=== PATIENT | female | born 1970 | race African-American/Black ===

== ENCOUNTER 2019-02-01 17:07 | Inpatient (IN) | payer MEDICAID ==
[~2019-02-01] VITALS: Ht 170.2 cm; Wt 77.7 kg
[2019-02-01] MEDS ORDERED: NKM (17:17)
--- NOTE | 2019-02-01 17:22 | NUR ---
ED Nurse Note: Pt came into the ER w/ complaints of posterior neck pain that radiated to the chest this morning. Pt is rating the pain a 10/10. According to pt, about 5 years ago she was diagnosed with HTN and prescribed atenalol. Pt stopped drinking meds because she states that "it was not right for me." Pt denies having n,v, headache. Pt is A + o x4. Ambulatory. Skin warm to touch.
[2019-02-01 17:24] VITALS: BP 188/107
[2019-02-01] MEDS ORDERED: Methocarbamol 750mg tab ORAL ONE (17:45)
--- NOTE | 2019-02-01 17:58 | NUR ---
ED Nurse Note: Xray at the bedside.
[2019-02-01 18:13] LABS: HEMATOCRIT 24.6 % (37.0-47.0); HEMOGLOBIN 7.2 G/DL (12.0-16.0); MEAN CORPUSCULAR VOLUME 63 FL (80-99); PLATELET COUNT 318 K/UL (150-450); RED CELL DISTRIBUTION WIDTH 13.7 % (11.6-14.8); WHITE BLOOD COUNT 7.4 K/UL (4.8-10.8)
--- NOTE | 2019-02-01 18:30 | Diagnostic Imaging Report ---
Indication: Dyspnea Comparison: None A single view chest radiograph was obtained. Findings: Cardiac silhouette is prominent. The lungs are clear. Pulmonary vascularity is appropriate. The diaphragmatic contour is smooth and costophrenic angles are sharp. No pleural effusions are identified. The bones are unremarkable. Impression: No acute findings
[2019-02-01 18:39] LABS: ANION GAP 7 mmol/L (5-15); BLOOD UREA NITROGEN 9 mg/dL (7-18); CALCIUM 8.8 MG/DL (8.5-10.1); CARBON DIOXIDE 29 MMOL/L (21-32); CHLORIDE 103 MMOL/L (98-107); POTASSIUM 4.2 MMOL/L (3.5-5.1); SODIUM 139 MMOL/L (136-145)
[2019-02-01 18:56] LABS: ALANINE AMINOTRANSFERASE 14 U/L (12-78); ALBUMIN 3.7 G/DL (3.4-5.0); ALBUMIN/GLOBULIN RATIO 1.1 (1.0-2.7); ALKALINE PHOSPHATASE 51 U/L (46-116); ASPARTATE AMINO TRANSFERASE 11 U/L (15-37); BILIRUBIN,TOTAL 0.3 MG/DL (0.2-1.0); CKMB 1.1 NG/ML (0.0-3.6); CREATINE KINASE 162 U/L (26-308)
--- NOTE | 2019-02-01 19:04 | NUR ---
HAND-OFF: Report given to AUNDREA Marquez.
[2019-02-01 21:50] VITALS: BP 180/100
--- NOTE | 2019-02-01 21:50 | NUR ---
ED Nurse Note: Blood transfusuon started at 2150. Patient's VSS at this time, no s/s of blood transfusion reaction noticed.
--- NOTE | 2019-02-01 21:55 | Emergency Room Report ---
History of Present Illness General Chief Complaint: Chest Pain Source: Patient Present Illness HPI 48-year-old female presents ED for evaluation. Complaining of pain in her upper back starting 2 days ago, radiating across the chest. Denies shortness of breath. Notes history of hypertension. BP high at triage. States that she does not take BP meds at this time. Denies any headache or photophobia. Denies any nausea or vomiting. Denies alcohol or drug use. No other aggravating relieving factors. Denies any other associated symptoms Allergies: Coded Allergies: No Known Allergies (Unverified , 02/01/19) Patient History Past Medical History: HTN, other - aneia Past Surgical History: none Pertinent Family History: none Social History: Denies: smoking, alcohol use, drug use Last Menstrual Period: 12/30/18 Now: No Immunizations: UTD Reviewed Nursing Documentation: PMH: Agreed; PSxH: Agreed Nursing Documentation-PMH Past Medical History: No History, Except For Hx Hypertension: Yes Review of Systems All Other Systems: negative except mentioned in HPI Physical Exam Vital Signs Date Time Temp Pulse Resp B/P (MAP) Pulse Ox O2 Delivery O2 Flow Rate FiO2 02/01/19 17:13 99.0 75 16 97 Room Air 02/01/19 17:24 100 02/01/19 17:24 188/107 Sp02 EP Interpretation: reviewed, normal General Appearance: no apparent distress, alert, GCS 15, non-toxic Head: normocephalic, atraumatic Eyes: bilateral eye normal inspection, bilateral eye PERRL ENT: hearing grossly normal, normal pharynx, no angioedema, normal voice Neck: full range of motion, supple, no meningismus, supple/symm/no masses Respiratory: chest non-tender, lungs clear, normal breath sounds, speaking full sentences Cardiovascular #1: regular rate, rhythm, no edema Cardiovascular #2: 2+ carotid (R), 2+ carotid (L), 2+ radial (R), 2+ radial (L) , 2+ dorsalis pedis (R), 2+ dorsalis pedis (L) Gastrointestinal: normal bowel sounds, non tender, soft, non-distended, no guarding, no rebound Rectal: deferred Genitourinary: normal inspection, no CVA tenderness Musculoskeletal: back normal, gait/station normal, normal range of motion, non- tender Neurologic: alert, oriented x3, responsive, motor strength/tone normal, sensory intact, speech normal Psychiatric: judgement/insight normal, memory normal, mood/affect normal, no suicidal/homicidal ideation Reflexes: 3+ bicep (R), 3+ bicep (L), 3+ tricep (R), 3+ tricep (L), 3+ knee (R) , 3+ knee (L) Skin: normal color, no rash, warm/dry, well hydrated Lymphatic: no adenopathy Medical Decision Making Diagnostic Impression: Primary Impression: ACS (acute coronary syndrome) Additional Impressions: Anemia Qualified Codes: D64.9 - Anemia, unspecified Hypertension Qualified Codes: I10 - Essential (primary) hypertension ER Course Hospital Course 48-year-old female presents ED complaining of left-sided chest pain Differential diagnoses include: SC/unstable angina, contusion, muscle strain, PTX, rib fracture Clinical course Patient placed on stretcher. on quality assurance monitor chassis. After initial history and physical I ordered labs, EKG, chest x-ray, tylenol, robaxin labs reviewed- no leukocytosis, Hb 7.2, Hct 24.6, electrolytes ok, trop 0.047 EKG - NSR, no acute ischemic changes interpreted by me Chest x-ray- no acute process Clinical exam the pain appears to be muscular however given patient's elevated blood pressure and indeterminate troponin I believe patient should be admitted. Given hydralazine for elevated BP. PRBCs ordered. Case discussed with Dr. Robertson and he agreed to accept the patient to his service for further care and support I. I feel this is a highly complex case requiring extensive working including EKG/Rhythm strip, Xray/CT/US, Blood/urine lab work, repeat exams while in ED, and administration of strong opiates/narcotics for pain control, admission to hospital or close patient follow up. Diagnosis - ACS, anemia, hypertension admitted to telemetry in serious condition Labs Test 02/01/19 17:55 White Blood Count 7.4 K/UL (4.8-10.8) Red Blood Count 3.90 M/UL (4.20-5.40) Hemoglobin 7.2 G/DL (12.0-16.0) Hematocrit 24.6 % (37.0-47.0) Mean Corpuscular Volume 63 FL (80-99) Mean Corpuscular Hemoglobin 18.5 PG (27.0-31.0) Mean Corpuscular Hemoglobin Concent 29.2 G/DL (32.0-36.0) Red Cell Distribution Width 13.7 % (11.6-14.8) Platelet Count 318 K/UL (150-450) Mean Platelet Volume 5.7 FL (6.5-10.1) Neutrophils (%) (Auto) % (45.0-75.0) Lymphocytes (%) (Auto) % (20.0-45.0) Monocytes (%) (Auto) % (1.0-10.0) Eosinophils (%) (Auto) % (0.0-3.0) Basophils (%) (Auto) % (0.0-2.0) Differential Total Cells Counted 100 Neutrophils % (Manual) 57 % (45-75) Lymphocytes % (Manual) 35 % (20-45) Monocytes % (Manual) 5 % (1-10) Eosinophils % (Manual) 2 % (0-3) Basophils % (Manual) 1 % (0-2) Band Neutrophils 0 % (0-8) Platelet Estimate Adequate Platelet Morphology Normal Hypochromasia 2+ Anisocytosis 2+ Prothrombin Time 10.6 SEC (9.30-11.50) Prothromb Time International Ratio 1.0 (0.9-1.1) Activated Partial Thromboplast Time 26 SEC (23-33) Sodium Level 139 MMOL/L (136-145) Potassium Level 4.2 MMOL/L (3.5-5.1) Chloride Level 103 MMOL/L (98-107) Carbon Dioxide Level 29 MMOL/L (21-32) Anion Gap 7 mmol/L (5-15) Blood Urea Nitrogen 9 mg/dL (7-18) Creatinine 1.0 MG/DL (0.55-1.30) Estimat Glomerular Filtration Rate 58.9 mL/min (>60) Glucose Level 87 MG/DL (74-106) Calcium Level 8.8 MG/DL (8.5-10.1) Total Bilirubin 0.3 MG/DL (0.2-1.0) Aspartate Amino Transf (AST/SGOT) 11 U/L (15-37) Alanine Aminotransferase (ALT/SGPT) 14 U/L (12-78) Alkaline Phosphatase 51 U/L (46-116) Total Creatine Kinase 162 U/L (26-308) Creatine Kinase MB 1.1 NG/ML (0.0-3.6) Creatine Kinase MB Relative Index 0.6 Troponin I 0.047 ng/mL (0.000-0.056) Pro-B-Type Natriuretic Peptide 84 pg/mL (0-125) Total Protein 7.1 G/DL (6.4-8.2) Albumin 3.7 G/DL (3.4-5.0) Globulin 3.4 g/dL Albumin/Globulin Ratio 1.1 (1.0-2.7) EKG Diagnostic Results Rate: normal Rhythm: NSR ST Segments: no acute changes ASA given to the pt in ED: No Rhythm Strip Diag. Results EP Interpretation: yes Rhythm: NSR, no PVC's, no ectopy Chest X-Ray Diagnostic Results Chest X-Ray Diagnostic Results : Chest X-Ray Ordered: Yes # of Views/Limited/Complete: 1 View Indication: Chest Pain EP Interpretation: Yes Interpretation: no consolidation, no effusion, no pneumothorax, no acute cardiopulmonary disease Impression: No acute disease Electronically Signed by: Electronically signed by Ramiro Morel MD Last Vital Signs Date Time Temp Pulse Resp B/P (MAP) Pulse Ox O2 Delivery O2 Flow Rate FiO2 02/01/19 20:30 178/98 02/01/19 18:27 98.7 02/01/19 17:24 83 16 100 Room Air 02/01/19 17:24 100 Status: improved Disposition: ADMITTED INPATIENT Condition: Serious Referrals: NOT CHOSEN IPA/,REFERRING (PCP) Ramiro Morel MD February 01, 2019 21:55
[2019-02-01 22:05] VITALS: BP 185/101
--- NOTE | 2019-02-01 22:05 | NUR ---
ED Nurse Note: 15 min pass from the start of blood transfusion, VSS aty this time no acute disstress notised.
[2019-02-01 22:30] VITALS: BP 137/95
[2019-02-01] MEDS ORDERED: Morphine Sulfate 2mg/ml Inj(IV/IM USE ONLY) IVP PRN (22:30)
[2019-02-01] MEDS ORDERED: Nitroglycerin Subl 0.4mg tab SL PRN (22:30)
[2019-02-01] MEDS: Carvedilol 6.25mg Tab ORAL SCH (22:30)
[2019-02-01 23:00] VITALS: BP 144/85
--- NOTE | 2019-02-01 23:00 | NUR ---
ED Nurse Note: Patient was admited to Tele, due to anemia. Patient started her first unit of the blood at ER, AAO x4, VSS at this time. Patient was transfered by ACLS protocol, all belongings were given to the patient.
[2019-02-02] MEDS: Enoxaparin 40mg Inj SUBQ SCH ×2 (00:29→22:31)
[2019-02-02 04:00] VITALS: BP 148/96
[2019-02-02 06:46] LABS: EOSINOPHILS % (AUTO) 0.9 % (0.0-3.0); HEMATOCRIT 31.4 % (37.0-47.0); HEMOGLOBIN 9.8 G/DL (12.0-16.0); LYMPHOCYTES % (AUTO) 27.7 % (20.0-45.0); MEAN CORPUSCULAR VOLUME 67 FL (80-99); MONOCYTES % (AUTO) 7.4 % (1.0-10.0); PLATELET COUNT 302 K/UL (150-450); RED BLOOD COUNT 4.67 M/UL (4.20-5.40); RED CELL DISTRIBUTION WIDTH 18.7 % (11.6-14.8); WHITE BLOOD COUNT 6.3 K/UL (4.8-10.8)
[2019-02-02 06:49] LABS: ANION GAP 9 mmol/L (5-15); BLOOD UREA NITROGEN 8 mg/dL (7-18); CARBON DIOXIDE 27 MMOL/L (21-32); CHLORIDE 105 MMOL/L (98-107); CREATININE 1.1 MG/DL (0.55-1.30); POTASSIUM 4.5 MMOL/L (3.5-5.1); SODIUM 140 MMOL/L (136-145)
--- NOTE | 2019-02-02 07:37 | NUR ---
HAND-OFF: Report given to AUNDREA Steiner.
--- NOTE | 2019-02-02 07:37 | NUR ---
NURSE NOTES: Troponin 0.075. Robertson aware. Case Assembler consulted per .
--- NOTE | 2019-02-02 07:54 | Cardiology Progress Note ---
Assessment/Plan Assessment/Plan The patient is seen and examined, full consult note will be dictated. Objective Last 24 Hour Vital Signs Date Time Temp Pulse Resp B/P (MAP) Pulse Ox O2 Delivery O2 Flow Rate FiO2 02/02/19 04:00 84 02/02/19 04:00 97.2 88 20 148/96 (113) 97 02/02/19 00:00 92 02/01/19 23:59 98.0 92 22 144/85 100 Room Air 02/01/19 23:00 98.0 85 18 144/85 100 Room Air 02/01/19 22:30 97.7 85 18 137/95 (109) 97 02/01/19 22:30 85 137/95 02/01/19 22:30 Room Air 02/01/19 22:24 182/100 02/01/19 22:23 182/100 02/01/19 22:05 98.0 79 20 185/101 100 Room Air 02/01/19 21:50 98.5 85 22 180/100 100 Room Air 02/01/19 20:30 178/98 02/01/19 18:27 98.7 02/01/19 17:24 98.7 83 16 188/107 100 Room Air 02/01/19 17:24 83 16 Room Air 100 02/01/19 17:13 99.0 75 16 97 Room Air Laboratory Tests Test 02/01/19 17:55 02/02/19 06:23 White Blood Count 7.4 K/UL (4.8-10.8) 6.3 K/UL (4.8-10.8) Red Blood Count 3.90 M/UL (4.20-5.40) L 4.67 M/UL (4.20-5.40) Hemoglobin 7.2 G/DL (12.0-16.0) L 9.8 G/DL (12.0-16.0) #L Hematocrit 24.6 % (37.0-47.0) L 31.4 % (37.0-47.0) L Mean Corpuscular Volume 63 FL (80-99) L 67 FL (80-99) L Mean Corpuscular Hemoglobin 18.5 PG (27.0-31.0) L 21.1 PG (27.0-31.0) L Mean Corpuscular Hemoglobin Concent 29.2 G/DL (32.0-36.0) L 31.4 G/DL (32.0-36.0) L Red Cell Distribution Width 13.7 % (11.6-14.8) 18.7 % (11.6-14.8) H Platelet Count 318 K/UL (150-450) 302 K/UL (150-450) Mean Platelet Volume 5.7 FL (6.5-10.1) L 6.3 FL (6.5-10.1) L Neutrophils (%) (Auto) % (45.0-75.0) 63.0 % (45.0-75.0) Lymphocytes (%) (Auto) % (20.0-45.0) 27.7 % (20.0-45.0) Monocytes (%) (Auto) % (1.0-10.0) 7.4 % (1.0-10.0) Eosinophils (%) (Auto) % (0.0-3.0) 0.9 % (0.0-3.0) Basophils (%) (Auto) % (0.0-2.0) 1.0 % (0.0-2.0) Differential Total Cells Counted 100 Neutrophils % (Manual) 57 % (45-75) Lymphocytes % (Manual) 35 % (20-45) Monocytes % (Manual) 5 % (1-10) Eosinophils % (Manual) 2 % (0-3) Basophils % (Manual) 1 % (0-2) Band Neutrophils 0 % (0-8) Platelet Estimate Adequate Platelet Morphology Normal Hypochromasia 2+ Anisocytosis 2+ Prothrombin Time 10.6 SEC (9.30-11.50) Prothromb Time International Ratio 1.0 (0.9-1.1) Activated Partial Thromboplast Time 26 SEC (23-33) Sodium Level 139 MMOL/L (136-145) 140 MMOL/L (136-145) Potassium Level 4.2 MMOL/L (3.5-5.1) 4.5 MMOL/L (3.5-5.1) Chloride Level 103 MMOL/L (98-107) 105 MMOL/L (98-107) Carbon Dioxide Level 29 MMOL/L (21-32) 27 MMOL/L (21-32) Anion Gap 7 mmol/L (5-15) 9 mmol/L (5-15) Blood Urea Nitrogen 9 mg/dL (7-18) 8 mg/dL (7-18) Creatinine 1.0 MG/DL (0.55-1.30) 1.1 MG/DL (0.55-1.30) Estimat Glomerular Filtration Rate 58.9 mL/min (>60) > 60 mL/min (>60) Glucose Level 87 MG/DL (74-106) 92 MG/DL (74-106) Calcium Level 8.8 MG/DL (8.5-10.1) 9.0 MG/DL (8.5-10.1) Total Bilirubin 0.3 MG/DL (0.2-1.0) Aspartate Amino Transf (AST/SGOT) 11 U/L (15-37) L Alanine Aminotransferase (ALT/SGPT) 14 U/L (12-78) Alkaline Phosphatase 51 U/L (46-116) Total Creatine Kinase 162 U/L (26-308) Creatine Kinase MB 1.1 NG/ML (0.0-3.6) Creatine Kinase MB Relative Index 0.6 Troponin I 0.047 ng/mL (0.000-0.056) 0.075 ng/mL (0.000-0.056) Pro-B-Type Natriuretic Peptide 84 pg/mL (0-125) Total Protein 7.1 G/DL (6.4-8.2) Albumin 3.7 G/DL (3.4-5.0) Globulin 3.4 g/dL Albumin/Globulin Ratio 1.1 (1.0-2.7) Rigoberto Blackmon MD February 02, 2019 07:54
[2019-02-02 08:00] VITALS: BP 146/95
--- NOTE | 2019-02-02 08:06 | NUR ---
Received report from Mary Jo GUILLAUME. Pt in bed just had breakfast. Pt on court recording monitor no signs of distress. Bed in locked and in lowest position. Call light within reach. Will continue to monitor labs. Addendum: 02/02/19 at 0813 by Obdulia Reagan RN Received report from Mary Jo GUILLAUME. Pt in bed just had breakfast. Pt on court recording monitor no signs of distress. Bed in locked and in lowest position. Call light within reach. Will continue to monitor labs. Night nurse notified Dr. Pringle about high troponin of 0.075 early this morning.
[2019-02-02 08:31] LABS: CHOLESTEROL 120 MG/DL (< 200); HDL CHOLESTEROL 53 MG/DL (40-60); TRIGLYCERIDES 51 MG/DL (30-150)
[2019-02-02] MEDS: Aspirin Baby 81mg ORAL SCH (09:17)
[2019-02-02] MEDS: Carvedilol 6.25mg Tab ORAL SCH ×2 (09:18→20:45)
[2019-02-02 12:00] VITALS: BP 155/97
[2019-02-02] MEDS: Excedrin Migraine tab ORAL PRN ×2 (12:08→13:22)
--- NOTE | 2019-02-02 12:17 | GI Initial Consult Note ---
History of Present Illness General Date patient seen: February 02, 2019 Time patient seen: 12:12 Reason for Hospitalization: Chest Pain Referring physician: FRITZ MCCLURE Reason for Consultation: Anemia Present Illness HPI 48-year-old female presents ED for evaluation. Complaining of pain in her upper back starting 2 days ago, radiating across the chest. Denies shortness of breath. Notes history of hypertension. BP high at triage. States that she does not take BP meds at this time. Denies any headache or photophobia. Denies any nausea or vomiting. Denies alcohol or drug use. No other aggravating relieving factors. Denies any other associated symptoms GI consulted for reported anemia. The patient was seen, awake alert oriented x4 no apparent distress. Patient denied any abdominal pain, denies any nausea vomiting or diarrhea at this time. Patient denied any signs or symptoms of hematochezia or melena. The patient has complaint of chest pain with radiation to the back. In addition, patient complains of belching and acid reflux. Patient presents today with a hemoglobin 7.8, no transaminitis noted, no leukocytosis. Patient denies any history of endoscopic or colonoscopy. Patient is currently being transfused 2 units of blood. Home Meds Reported Medications No Known Medications* (NKM - No Known Medications*) ., 0 ., 0 Refills 02/01/19 Med list reviewed/reconciled: Yes Allergies: Coded Allergies: No Known Allergies (Unverified , 02/01/19) Patient History History Provided By: Patient, Medical Record PMH Narrative Past Medical History: HTN, other -anemia Past Surgical History: none Pertinent Family History: none Social History: Denies: smoking, alcohol use, drug use Last Menstrual Period: 12/30/18 Now: No Immunizations: UTD Reviewed Nursing Documentation: PMH: Agreed; PSxH: Agreed Nursing Documentation-PMH Past Medical History: No History, Except For Hx Hypertension: Yes Social History: Denies: smoking, alcohol use, drug use, other Review of Systems All Other Systems: negative except mentioned in HPI Physical Exam Vital Signs Date Time Temp Pulse Resp B/P (MAP) Pulse Ox O2 Delivery O2 Flow Rate FiO2 02/01/19 17:13 99.0 75 16 97 Room Air 02/01/19 17:24 100 02/01/19 17:24 188/107 Sp02 EP Interpretation: reviewed, normal Labs Laboratory Tests Test 02/01/19 17:55 02/02/19 06:23 White Blood Count 7.4 K/UL (4.8-10.8) 6.3 K/UL (4.8-10.8) Red Blood Count 3.90 M/UL (4.20-5.40) L 4.67 M/UL (4.20-5.40) Hemoglobin 7.2 G/DL (12.0-16.0) L 9.8 G/DL (12.0-16.0) #L Hematocrit 24.6 % (37.0-47.0) L 31.4 % (37.0-47.0) L Mean Corpuscular Volume 63 FL (80-99) L 67 FL (80-99) L Mean Corpuscular Hemoglobin 18.5 PG (27.0-31.0) L 21.1 PG (27.0-31.0) L Mean Corpuscular Hemoglobin Concent 29.2 G/DL (32.0-36.0) L 31.4 G/DL (32.0-36.0) L Red Cell Distribution Width 13.7 % (11.6-14.8) 18.7 % (11.6-14.8) H Platelet Count 318 K/UL (150-450) 302 K/UL (150-450) Mean Platelet Volume 5.7 FL (6.5-10.1) L 6.3 FL (6.5-10.1) L Neutrophils (%) (Auto) % (45.0-75.0) 63.0 % (45.0-75.0) Lymphocytes (%) (Auto) % (20.0-45.0) 27.7 % (20.0-45.0) Monocytes (%) (Auto) % (1.0-10.0) 7.4 % (1.0-10.0) Eosinophils (%) (Auto) % (0.0-3.0) 0.9 % (0.0-3.0) Basophils (%) (Auto) % (0.0-2.0) 1.0 % (0.0-2.0) Differential Total Cells Counted 100 Neutrophils % (Manual) 57 % (45-75) Lymphocytes % (Manual) 35 % (20-45) Monocytes % (Manual) 5 % (1-10) Eosinophils % (Manual) 2 % (0-3) Basophils % (Manual) 1 % (0-2) Band Neutrophils 0 % (0-8) Platelet Estimate Adequate Platelet Morphology Normal Hypochromasia 2+ Anisocytosis 2+ Prothrombin Time 10.6 SEC (9.30-11.50) Prothromb Time International Ratio 1.0 (0.9-1.1) Activated Partial Thromboplast Time 26 SEC (23-33) Sodium Level 139 MMOL/L (136-145) 140 MMOL/L (136-145) Potassium Level 4.2 MMOL/L (3.5-5.1) 4.5 MMOL/L (3.5-5.1) Chloride Level 103 MMOL/L (98-107) 105 MMOL/L (98-107) Carbon Dioxide Level 29 MMOL/L (21-32) 27 MMOL/L (21-32) Anion Gap 7 mmol/L (5-15) 9 mmol/L (5-15) Blood Urea Nitrogen 9 mg/dL (7-18) 8 mg/dL (7-18) Creatinine 1.0 MG/DL (0.55-1.30) 1.1 MG/DL (0.55-1.30) Estimat Glomerular Filtration Rate 58.9 mL/min (>60) > 60 mL/min (>60) Glucose Level 87 MG/DL (74-106) 92 MG/DL (74-106) Calcium Level 8.8 MG/DL (8.5-10.1) 9.0 MG/DL (8.5-10.1) Total Bilirubin 0.3 MG/DL (0.2-1.0) Aspartate Amino Transf (AST/SGOT) 11 U/L (15-37) L Alanine Aminotransferase (ALT/SGPT) 14 U/L (12-78) Alkaline Phosphatase 51 U/L (46-116) Total Creatine Kinase 162 U/L (26-308) Creatine Kinase MB 1.1 NG/ML (0.0-3.6) Creatine Kinase MB Relative Index 0.6 Troponin I 0.047 ng/mL (0.000-0.056) 0.075 ng/mL (0.000-0.056) Pro-B-Type Natriuretic Peptide 84 pg/mL (0-125) Total Protein 7.1 G/DL (6.4-8.2) Albumin 3.7 G/DL (3.4-5.0) Globulin 3.4 g/dL Albumin/Globulin Ratio 1.1 (1.0-2.7) Triglycerides Level 51 MG/DL (30-150) Cholesterol Level 120 MG/DL (< 200) LDL Cholesterol 60 mg/dL (<100) HDL Cholesterol 53 MG/DL (40-60) Cholesterol/HDL Ratio 2.3 (3.3-4.4) L General Appearance: well appearing, no apparent distress, alert Head: normocephalic EENT: PERRL/EOMI, normal ENT inspection Neck: supple Respiratory: normal breath sounds, no respiratory distress Cardiovascular: normal rate Gastrointestinal: normal inspection, non tender, soft, normal bowel sounds, non -distended Rectal: deferred Genitourinary: no CVA tenderness Musculoskeletal: normal inspection, back normal Neurologic: normal inspection, alert, oriented x3, responsive Psychiatric: normal inspection, judgement/insight normal, memory normal Skin: normal inspection, normal color, no rash, warm/dry, palpation normal, well hydrated Lymphatic: normal inspection, no adenopathy Current Medications Current Medications Medications (Trade) Dose Ordered Sig/Donnie Route PRN Reason Start Time Stop Time Status Last Admin Dose Admin Acetaminophen (Tylenol) 650 mg Q4H PRN ORAL Mild Pain (Pain Scale 1-3) 02/01/19 22:30 03/03/19 22:29 Acetaminophen/ Aspirin/Caffeine (Excedrin Migraine) 1 ea Q6H PRN ORAL Headache 02/02/19 12:00 03/04/19 11:59 02/02/19 12:08 Aspirin (ASA) 81 mg DAILY ORAL 02/02/19 09:00 03/04/19 08:59 02/02/19 09:17 Atorvastatin Calcium (Lipitor) 80 mg BEDTIME ORAL 02/02/19 21:00 03/04/19 20:59 Carvedilol (Coreg) 6.25 mg EVERY 12 HOURS ORAL 02/01/19 22:30 03/03/19 22:29 02/02/19 09:18 Dextrose (Dextrose 50%) 25 ml Q30M PRN IV Hypoglycemia 02/01/19 22:30 6/12/19 22:29 Dextrose (Dextrose 50%) 50 ml Q30M PRN IV Hypoglycemia 02/01/19 22:30 03/03/19 22:29 Enoxaparin Sodium (Lovenox) 40 mg Q24H SUBQ 02/01/19 23:30 03/03/19 23:29 02/02/19 00:29 Famotidine (Pepcid) 40 mg DAILY ORAL 02/02/19 09:00 03/04/19 08:59 02/02/19 09:17 Hydralazine HCl (Apresoline) 10 mg Q4H PRN IV For High Blood Pressure 02/01/19 22:30 03/03/19 22:29 Morphine Sulfate (Morphine Sulfate) 1 mg Q8H PRN IVP For Pain 02/01/19 22:30 02/08/19 22:29 Nitroglycerin (Ntg) 0.4 mg Q5M PRN SL Prn Chest Pain 02/01/19 22:30 03/03/19 22:29 Ondansetron HCl (Zofran) 4 mg Q6H PRN IVP Nausea & Vomiting 02/01/19 22:30 03/03/19 22:29 Regadenoson (Lexiscan) 0.4 mg ONCE PRN IV stress test 02/03/19 12:00 02/04/19 11:59 GI: Plan Problems: (1) Anemia (2) GERD (gastroesophageal reflux disease) Plan Will consider GI procedures pending work-up Follow cardiology recommendations given elevated troponin levels anemia work up OB stool r/o GI bleed monitor H&H, prn transfusions bowel regime H2B fu labs, urine tox Discussed with Dr. Sharma. Thank you for this patient referral, we will follow. The patient was seen and examined at bedside and all new and available data was reviewed in the patients chart. I agree with the above findings, impression and plan. (Patient seen earlier today. Signature stamp does not reflect patient encounter time.). - MD More Wang,[facility] [employer] ENGINEER February 02, 2019 12:17
--- NOTE | 2019-02-02 12:56 | Cardiology Report ---
APPROVED REPORT EXAM: Two-dimensional and M-mode echocardiogram with Doppler and color Doppler. INDICATION S.O.B M-Mode DIMENSIONS IVSd0.9 (0.7-1.1cm)Left Atrium (MM)2.9 (1.6-4.0cm) LVDd5.2 (3.5-5.6cm)Aortic Root3.7 (2.0-3.7cm) PWd1.0 (0.7-1.1cm)Aortic Cusp Exc.2.0 (1.5-2.0cm) IVSs1.4 cm LVDs3.1 (2.5-4.0cm) PWs1.4 cm Normal left ventricular chamber size, systolic function and wall motion. Left ventricular ejection fraction estimated to be 60-65%. Mild left ventricular hypertrophy by 2-D. Anterior Echo-free space, may be due to pericardial fat or effusion. All other cardiac chamber sizes are within normal limits. Aortic valve calcification with normal cusp excursion . Mildly thickened mitral valve leaflets with normal excursion. Mild mitral annulus and aortic root calcification. Pulmonic valve not well visualized. IVC at normal size with physiologic collapse . A color flow and spectral Doppler study was performed and revealed: Mild aortic insufficiency . Mitral diastolic velocities suggest reduced left ventricular relaxation c/w mild LV diastolic dysfunction (Grade I ) Mild mitral regurgitation. Trace tricuspid regurgitation. Tricuspid systolic velocities suggests peak right ventricular systolic pressure of 21mmHg.
--- NOTE | 2019-02-02 14:21 | Cardiology Report ---
APPROVED REPORT EKG Measurement Heart [id number] Normal sinus rhythm Possible Left atrial enlargement Borderline ECG
--- NOTE | 2019-02-02 14:29 | NUR ---
CASE MANAGEMENT:REVIEW 48 YR OLD FEMALE PRESENTED TO ER CC; CHEST PAIN SI: ACS. ANEMIA. HTN 99.0 75 16 188/107 97% ON RA h/h-7.2/24.6 IS: TYLENOL PO IV HYDRALAZINE METHOCARBAMOL PO CHEST XRAY TRANSFUSE 2 UNITS PRBC'S : TO TELEMETRY INTERQUAL CRITERIA MET
--- NOTE | 2019-02-02 14:34 | NUR ---
Pt will like to have a thread mill test done instead of the of the lexiscan. Blair from lab is communicating with cardiology to verify if thread mill test is sufficient.
[2019-02-02 16:00] VITALS: BP 147/91
--- NOTE | 2019-02-02 16:15 | History and Physical Report ---
DATE OF ADMISSION: 02/01/2019 REASON FOR ADMISSION: 1. Chest pain. 2. Anemia. 3. Hypertension. HISTORY OF PRESENT ILLNESS: The patient is a 48-year-old female, admitted overnight from the emergency room after complaining of chest pain over the last two days, radiating across her chest. She denies any shortness of breath. No nausea, vomiting, or diarrhea. The patient stated that she had not been taking her medications, had been prescribed medications in the past, but she stated she did not feel well on them and had stopped taking them. Her troponins were slightly elevated at the time of admission. The patient is feeling slightly better since chest pressure has resolved. ALLERGIES: No known drug allergies. PAST MEDICAL HISTORY: Hypertension. PAST SURGICAL HISTORY: None. SOCIAL HISTORY: No tobacco, alcohol, or illicit drug use. FAMILY HISTORY: Positive for hypertension. REVIEW OF SYSTEMS: NEUROLOGIC: The patient denies headache, change in vision, syncope, or presyncopal episodes. CARDIOVASCULAR: The patient is having some chest pain. No palpitations. PULMONARY: No difficulty breathing, productive cough, or sputum. GASTROINTESTINAL/GENITOURINARY: No change in bowel habits. No nausea, vomiting, or diarrhea. ENDOCRINOLOGY: No night sweats, fevers, or chills. PHYSICAL EXAMINATION: VITAL SIGNS: Blood pressure 146/95, respiratory rate 20, pulse 84, temperature 98.8, 98% oxygen saturation on room air. GENERAL: The patient is awake, alert, not in distress. HEENT: Extraocular muscles intact. No lymphadenopathy noted. Oropharyngeal mucosa clear and dry. CARDIOVASCULAR: S1, S2. No murmurs, rubs, or gallops. PULMONARY: Clear to auscultation bilaterally. No rales, rhonchi, or wheezes. ABDOMEN: Nondistended and nontender. EXTREMITIES: No edema noted. ASSESSMENT AND PLAN: 1. Hypertension. At this time, Coreg has been initiated and blood pressure has improved. We will continue to monitor. 2. Acute coronary syndrome with elevated troponin. At this time, continue beta-leila, aspirin, statin therapy. Cardiology was consulted and cardiac stress test pending. 3. Anemia. The patient did receive 2 unit blood transfusion and is pending GI consultation for evaluation and further management with recommendations. 4. DVT prophylaxis with Lovenox. Samy Robertson MD DR: BRYANNA JOB#: [id number] CC:
--- NOTE | 2019-02-02 19:53 | NUR ---
NURSE NOTES: Received report from Obdulia GUILLAUME, pt. in bed awake, A/O x's4- able to make needs known, no signs or symptoms of acute cardiac or respiratory distress noted, bed alarm on, side rails up x's3 and safety brakes engaged, pt. is clean and dry- all needs attended to, pt. appears to be sating well on room air at 98%- no distress noted, left AC 18G- IV intact and patent, safety measures continued, will continue with plan of care.
[2019-02-02 20:00] VITALS: BP 171/107
--- NOTE | 2019-02-02 20:06 | NUR ---
HAND-OFF: Report given to Oli GUILLAUME.
[2019-02-02] MEDS: Atorvastatin 80mg tab ORAL SCH (20:46)
[2019-02-03] VITALS: BP 163/96
--- NOTE | 2019-02-03 03:15 | Consultation ---
DATE OF CONSULTATION: 02/02/2019 CONSULTING PHYSICIAN: Rigoberto Blackmon M.D. REFERRING PHYSICIAN: Samy Robertson M.D. REASON FOR CONSULTATION: Management of chest pain. HISTORY: This is a very unfortunate 48-year-old female, who presented to the emergency department with complaints of chest pain that is located in the upper left pericardial area with radiation to the upper back that started about 2 days ago with no shortness of breath or nausea or vomiting. According to her, her blood pressure has lately been elevated. She does not take any blood pressure medication. Her cardiovascular history is significant for history of hypertension. At the time of evaluation in the emergency department, blood pressure was 188/107 mmHg and heart rate was 75. Laboratory finding in the emergency department revealed anemia with hemoglobin of 7.2 and hematocrit of 24.6 and slightly elevated troponin level at 0.047. The patient was then admitted to the hospital for evaluation of elevated troponin I level as well as management of accelerated hypertension. PAST MEDICAL HISTORY: Hypertension and anemia. PAST SURGICAL HISTORY: None. MEDICATIONS: None. FAMILY HISTORY: No premature coronary artery disease in the first-degree relatives. SOCIAL HISTORY: Denies any tobacco, alcohol, or illicit drug use. REVIEW OF SYSTEMS: A 12-system review done essentially negative except what is mentioned in the history of present illness. PHYSICAL EXAMINATION: VITAL SIGNS: Blood pressure was 188/107, respirations of of 16, pulse of 75, temperature 99 degrees Fahrenheit, and O2 saturation 97% on room air. GENERAL: The patient is a very pleasant 48-year-old female, in no apparent respiratory distress. Alert and oriented oriented x4. HEENT: Atraumatic and normocephalic. Anicteric. Pupils are equal, round, and reactive to light and accommodation. Extraocular muscles are intact. NECK: JVP less than 5 cm. No carotid bruit. Carotid upstroke is 2+ bilaterally. CVS: Normal S1 and S2. Regular rate and rhythm. No murmurs, gallops, or rubs. PMI is at fourth intercostal space in the midclavicular line. LUNGS: Clear to auscultation bilaterally. ABDOMEN: Soft, nontender, and nondistended. No hepatosplenomegaly. Positive bowel sounds. EXTREMITIES: No evidence of edema, clubbing, or cyanosis. LABORATORY FINDINGS: WBC was 7.4, hemoglobin of 7.2, hematocrit of 24.6%, and platelet count 318,000. Sodium is 139, potassium is 4.2, chloride 103, bicarbonate 29, BUN of 9, creatinine 1.0, and glucose is 87. Calcium is 8.8. Troponin I was 0.047. ProBNP was 84. A 12-lead electrocardiogram showed sinus rhythm with no acute ischemic changes. Chest x-ray showed no acute cardiopulmonary disease. ASSESSMENT AND PLAN: This is a very unfortunate 48-year-old female, who is seen in Cardiology consultation. 1. Accelerated hypertension. The patient may require dual anti-platelet therapy with most likely calcium channel leila and angiotensin receptor leila. 2. Accelerated hypertension can account for the patient's chest pain. We will obtain 2D echocardiography for assessment of LV systolic and diastolic function and also rule out hypertensive heart disease. The patient requires nutritional education regarding salt restriction and low-salt diet as well as emphasis on increased cardiovascular activities. 3. Elevated troponin I level in this patient could be due to left ventricular strain associated with left ventricular hypertrophy, I doubt dealing with rupture as the 12-lead electrocardiogram does not show any ischemic changes. A 2D echocardiography, which shed light on details of wall motion as well as function of the left ventricle. Further therapeutic and diagnostic decision will be based on the results of 2D echocardiography. The patient will have another set of troponin I level and if positive, will undergo pharmacological stress Cardiolite to rule out obstructive CAD. 4. Anemia. Hematology/Oncology consultation. The patient may require iron and workup of anemia. I would like to thank, Dr. Robertson, for allowing me to participate in the care of this patient. Rigoberto Blackmon M.D. DR: ANNA JOB#: [id number] CC:
[2019-02-03 04:00] VITALS: BP 127/76
[2019-02-03 06:21] LABS: BASOPHILS % (AUTO) 0.9 % (0.0-2.0); HEMATOCRIT 33.5 % (37.0-47.0); HEMOGLOBIN 10.6 G/DL (12.0-16.0); LYMPHOCYTES % (AUTO) 32.6 % (20.0-45.0); MEAN CORPUSCULAR VOLUME 67 FL (80-99); MONOCYTES % (AUTO) 7.8 % (1.0-10.0); NEUTROPHILS % (AUTO) 56.7 % (45.0-75.0); PLATELET COUNT 342 K/UL (150-450); RED BLOOD COUNT 4.99 M/UL (4.20-5.40); WHITE BLOOD COUNT 7.9 K/UL (4.8-10.8)
[2019-02-03 06:37] LABS: % IRON SATURATION 6 % (15-50); IRON 21 ug/dL (50-175); TOTAL IRON BINDING CAPACITY 378 ug/dL (250-450)
[2019-02-03 06:53] LABS: ANION GAP 9 mmol/L (5-15); BLOOD UREA NITROGEN 20 mg/dL (7-18); CALCIUM 9.3 MG/DL (8.5-10.1); CARBON DIOXIDE 27 MMOL/L (21-32); CHLORIDE 105 MMOL/L (98-107); CREATININE 1.2 MG/DL (0.55-1.30); FERRITIN 8 NG/ML (8-388); POTASSIUM 3.8 MMOL/L (3.5-5.1); SODIUM 141 MMOL/L (136-145)
--- NOTE | 2019-02-03 07:27 | NUR ---
HAND-OFF: Report given to Luis F RN, pt. remains stable and no signs of distress noted.
[2019-02-03 08:00] VITALS: BP 144/88
[2019-02-03] MEDS: Carvedilol 6.25mg Tab ORAL SCH ×2 (08:12→20:19)
[2019-02-03] MEDS: Aspirin Baby 81mg ORAL SCH (08:45)
[2019-02-03] MEDS: Enoxaparin 40mg Inj SUBQ SCH (08:48)
--- NOTE | 2019-02-03 08:53 | Nephrology Progress Note ---
Assessment/Plan Assessment/Plan: A/P 1) Chest Pain with elevated Trop I - stress test today, awaiting ECHO results - DC patient once cleared by cardiology 2) Anemia- iron deficiency- awaiting GI for possible endoscopies 3) HTN- on Coreg 4) DVT prophylaxis with SCDs Subjective Date patient seen: February 03, 2019 Time patient seen: 08:51 ROS Limited/Unobtainable: No Allergies: Coded Allergies: No Known Allergies (Unverified , 02/01/19) Subjective Patient with no complaints. Chest pain resolved Objective Last 24 Hour Vital Signs Date Time Temp Pulse Resp B/P (MAP) Pulse Ox O2 Delivery O2 Flow Rate FiO2 02/03/19 04:00 74 02/03/19 04:00 97.6 72 19 127/76 (93) 96 02/03/19 00:27 163/96 02/03/19 00:00 98.3 71 19 163/96 (118) 97 02/03/19 00:00 66 02/02/19 21:00 Room Air 02/02/19 20:45 98 171/107 02/02/19 20:00 99.0 74 19 171/107 (128) 96 02/02/19 20:00 74 02/02/19 16:00 80 02/02/19 16:00 99.7 82 20 147/91 (109) 98 02/02/19 12:00 98.7 76 20 155/97 (116) 98 02/02/19 12:00 72 02/02/19 09:18 84 146/95 02/02/19 09:00 Room Air Laboratory Tests 02/02/19 12:20: Troponin I 0.072H 02/02/19 16:30: Urine HCG, Qualitative Negative 02/03/19 05:50: White Blood Count 7.9, Red Blood Count 4.99, Hemoglobin 10.6L, Hematocrit 33.5L , Mean Corpuscular Volume 67L, Mean Corpuscular Hemoglobin 21.2L, Mean Corpuscular Hemoglobin Concent 31.5L, Red Cell Distribution Width 19.0H, Platelet Count 342, Mean Platelet Volume 6.4L, Neutrophils (%) (Auto) 56.7, Lymphocytes (%) (Auto) 32.6, Monocytes (%) (Auto) 7.8, Eosinophils (%) (Auto) 2.0, Basophils (%) (Auto) 0.9, Reticulocyte Count [Pending], Sodium Level 141, Potassium Level 3.8, Chloride Level 105, Carbon Dioxide Level 27, Anion Gap 9, Blood Urea Nitrogen 20H, Creatinine 1.2, Estimat Glomerular Filtration Rate 57.9 , Glucose Level 97, Calcium Level 9.3, Iron Level 21L, Total Iron Binding Capacity 378, Percent Iron Saturation 6L, Unsaturated Iron Binding 357H, Ferritin 8, Carcinoembryonic Antigen [Pending], Vitamin B12 Level 330, Folate 4.3L, Thyroid Stimulating Hormone (TSH) 1.191, Free Thyroxine 1.04 Height (Feet): 5 Height (Inches): 7.00 Weight (Pounds): 171 General Appearance: no apparent distress, alert EENT: normal ENT inspection Neck: normal alignment, supple Cardiovascular: normal rate, regular rhythm Respiratory/Chest: lungs clear, normal breath sounds Abdomen: non tender, soft Edema: no edema noted Arm (L), no edema noted Arm (R), no edema noted Leg (L), no edema noted Leg (R), no edema noted Pedal (L), no edema noted Pedal (R), no edema noted Generalized Samy Robertson MD February 03, 2019 08:53
--- NOTE | 2019-02-03 09:48 | GI Progress Note ---
Assessment/Plan Problems: (1) Iron (Fe) deficiency anemia ICD Codes: D50.9 - Iron deficiency anemia, unspecified SNOMED: 86809956 (2) GERD (gastroesophageal reflux disease) ICD Codes: K21.9 - Gastro-esophageal reflux disease without esophagitis SNOMED: 124817063 (3) Anemia ICD Codes: D64.9 - Anemia, unspecified SNOMED: 242401239 Qualifiers: Qualified Codes: D64.9 - Anemia, unspecified Status: stable Status Narrative Discussed with Dr. Sharma. Assessment/Plan iron deficiency stable H&H symptomatic treatment OB stool r/o GI bleed monitor H&H, prn transfusions bowel regime H2B venofer fu labs, urine tox outpatient GI procedures The patient was seen and examined at bedside and all new and available data was reviewed in the patients chart. I agree with the above findings, impression and plan. (Patient seen earlier today. Signature stamp does not reflect patient encounter time.). - Lefty Sharma MD Subjective Gastrointestinal/Abdominal: Reports: no symptoms Objective Last 24 Hour Vital Signs Date Time Temp Pulse Resp B/P (MAP) Pulse Ox O2 Delivery O2 Flow Rate FiO2 02/03/19 04:00 74 02/03/19 04:00 97.6 72 19 127/76 (93) 96 02/03/19 00:27 163/96 02/03/19 00:00 98.3 71 19 163/96 (118) 97 02/03/19 00:00 66 02/02/19 21:00 Room Air 02/02/19 20:45 98 171/107 02/02/19 20:00 99.0 74 19 171/107 (128) 96 02/02/19 20:00 74 02/02/19 16:00 80 02/02/19 16:00 99.7 82 20 147/91 (109) 98 02/02/19 12:00 98.7 76 20 155/97 (116) 98 02/02/19 12:00 72 Laboratory Tests Test 02/02/19 12:20 02/02/19 16:30 02/03/19 05:50 Troponin I 0.072 ng/mL (0.000-0.056) Urine HCG, Qualitative Negative (NEGATIVE) White Blood Count 7.9 K/UL (4.8-10.8) Red Blood Count 4.99 M/UL (4.20-5.40) Hemoglobin 10.6 G/DL (12.0-16.0) L Hematocrit 33.5 % (37.0-47.0) L Mean Corpuscular Volume 67 FL (80-99) L Mean Corpuscular Hemoglobin 21.2 PG (27.0-31.0) L Mean Corpuscular Hemoglobin Concent 31.5 G/DL (32.0-36.0) L Red Cell Distribution Width 19.0 % (11.6-14.8) H Platelet Count 342 K/UL (150-450) Mean Platelet Volume 6.4 FL (6.5-10.1) L Neutrophils (%) (Auto) 56.7 % (45.0-75.0) Lymphocytes (%) (Auto) 32.6 % (20.0-45.0) Monocytes (%) (Auto) 7.8 % (1.0-10.0) Eosinophils (%) (Auto) 2.0 % (0.0-3.0) Basophils (%) (Auto) 0.9 % (0.0-2.0) Reticulocyte Count Pending Sodium Level 141 MMOL/L (136-145) Potassium Level 3.8 MMOL/L (3.5-5.1) Chloride Level 105 MMOL/L (98-107) Carbon Dioxide Level 27 MMOL/L (21-32) Anion Gap 9 mmol/L (5-15) Blood Urea Nitrogen 20 mg/dL (7-18) H Creatinine 1.2 MG/DL (0.55-1.30) Estimat Glomerular Filtration Rate 57.9 mL/min (>60) Glucose Level 97 MG/DL (74-106) Calcium Level 9.3 MG/DL (8.5-10.1) Iron Level 21 ug/dL (50-175) L Total Iron Binding Capacity 378 ug/dL (250-450) Percent Iron Saturation 6 % (15-50) L Unsaturated Iron Binding 357 ug/dL (112-346) H Ferritin 8 NG/ML (8-388) Carcinoembryonic Antigen Pending Vitamin B12 Level 330 PG/ML (193-986) Folate 4.3 NG/ML (8.6-58.9) L Thyroid Stimulating Hormone (TSH) 1.191 uiU/mL (0.358-3.740) Free Thyroxine 1.04 NG/DL (0.76-1.46) Height (Feet): 5 Height (Inches): 7.00 Weight (Pounds): 171 General Appearance: WD/WN, no apparent distress, alert Cardiovascular: normal rate Respiratory/Chest: normal breath sounds, no respiratory distress Abdominal Exam: normal bowel sounds, non tender, soft Extremities: normal range of motion, non-tender Brian Aguero NP February 03, 2019 09:48
[2019-02-03] MEDS ORDERED: Iron Sucrose 200 MG in NS 110 ML IV ONE (11:00)
[2019-02-03 12:00] VITALS: BP 140/82
[2019-02-03] MEDS ORDERED: Lexiscan 0.4mg/5ml syringe IV PRN (12:00)
--- NOTE | 2019-02-03 12:04 | NUR ---
CASE MANAGEMENT:REVIEW 02/03/19 SI: CHEST PAIN W/ELEVATED TROPONIN ANEMIA. HTN 98.0 76 20 144/88 98% ON RA LAST TROPONIN(+) 0.072 IS: IV LEXISCAN LOVENOX SQ QD ASA PO QD PEPCID PO QD COREG PO Q12 : TELEMETRY STATUS DCP: FROM HOME PLAN: STRESS TEST FOR TODAY
--- NOTE | 2019-02-03 12:35 | Physician Query ---
THIS FORM IS A PERMANENT PART OF THE MEDICAL RECORD ------ PLEASE COMPLETE DOCUMENT BEFORE SIGNING Dear Dr. Samy Robertson Date: 02/03/2019 Continuity Writer/CDS Name: Minnie Forrest Exercise your independent professional judgment when responding to the query. Question asked do not imply a particular answer is desired/expected Clinical Documentation States: 48-year-old female, who presented to the emergency department with complaints of chest pain that is located in the upper left pericardial area with radiation to the upper back that started about 2 days ago with no shortness of breath 02/02 GI note: GI consulted for reported anemia...Patient presents today with a hemoglobin 7.8... Patient is currently being transfused 2 units of blood. 02/03 Cardiology note: Accelerated hypertension can account for the patient's chest pain...Elevated troponin I level in this patient could be due to left ventricular strain associated with left ventricular hypertrophy BPmax: 02/01 188/107 02/02 171/107 Treatment: IV Hydralazine, IV Iron sucrose Please Clarify the possible cause or causes of chest pain and troponemia: [Y] Hypertensive Urgency [] Hypertensive Emergency [] Demand Ishcemia due to anemia [] Other: Condition Present on Admission: [Y] Yes [] No []Clinically Undeterminable Please also document in your Progress Notes and/or Discharge Summary and indicate if the condition was present on admission. Signature Date MTDD
[2019-02-03 16:00] VITALS: BP 142/80
--- NOTE | 2019-02-03 16:55 | NUR ---
NM Myocardial Perfusion Scan complete.
--- NOTE | 2019-02-03 19:38 | NUR ---
NURSE NOTES: patient received. patient in no acute distress at this time. patient complains of no pain at this time. patient awake alert and oriented x4. family at bedside. IV intact patent and asymptomatic. call light within reach. will continue to monitor.
--- NOTE | 2019-02-03 19:43 | NUR ---
HAND-OFF: Report given to laverne conrad.
[2019-02-03 20:00] VITALS: BP 153/103
--- NOTE | 2019-02-03 20:02 | Cardiology Progress Note ---
Assessment/Plan Assessment/Plan 1. Accelerated hypertension. The patient may require dual anti-hypertensive therapy, start amlodipine and losartan. Continue carvedilol. 2D echo reveal normal LVEF at 65%. 2. Elevated troponin I level in this patient could be due to left ventricular strain associated with left ventricular hypertrophy, 12-lead electrocardiogram does not show any ischemic changes, proceed with pharmacological stress Cardiolite to rule out obstructive CAD. Subjective Subjective Sinus rhythm at rate of 73. Objective Last 24 Hour Vital Signs Date Time Temp Pulse Resp B/P (MAP) Pulse Ox O2 Delivery O2 Flow Rate FiO2 02/03/19 16:00 98.2 81 20 142/80 (100) 98 02/03/19 16:00 84 02/03/19 12:00 68 02/03/19 12:00 98.0 76 20 140/82 (101) 98 02/03/19 09:00 Room Air 02/03/19 08:00 98.0 76 20 144/88 (106) 98 02/03/19 08:00 74 02/03/19 04:00 74 02/03/19 04:00 97.6 72 19 127/76 (93) 96 02/03/19 00:27 163/96 02/03/19 00:00 98.3 71 19 163/96 (118) 97 02/03/19 00:00 66 02/02/19 21:00 Room Air 02/02/19 20:45 98 171/107 02/02/19 20:00 99.0 74 19 171/107 (128) 96 02/02/19 20:00 74 Intake and Output 02/02/19 02/03/19 19:00 07:00 # Voids 3 # Bowel Movements 1 Laboratory Tests Test 02/03/19 05:50 White Blood Count 7.9 K/UL (4.8-10.8) Red Blood Count 4.99 M/UL (4.20-5.40) Hemoglobin 10.6 G/DL (12.0-16.0) L Hematocrit 33.5 % (37.0-47.0) L Mean Corpuscular Volume 67 FL (80-99) L Mean Corpuscular Hemoglobin 21.2 PG (27.0-31.0) L Mean Corpuscular Hemoglobin Concent 31.5 G/DL (32.0-36.0) L Red Cell Distribution Width 19.0 % (11.6-14.8) H Platelet Count 342 K/UL (150-450) Mean Platelet Volume 6.4 FL (6.5-10.1) L Neutrophils (%) (Auto) 56.7 % (45.0-75.0) Lymphocytes (%) (Auto) 32.6 % (20.0-45.0) Monocytes (%) (Auto) 7.8 % (1.0-10.0) Eosinophils (%) (Auto) 2.0 % (0.0-3.0) Basophils (%) (Auto) 0.9 % (0.0-2.0) Reticulocyte Count 0.9 % (0.5-2.0) Sodium Level 141 MMOL/L (136-145) Potassium Level 3.8 MMOL/L (3.5-5.1) Chloride Level 105 MMOL/L (98-107) Carbon Dioxide Level 27 MMOL/L (21-32) Anion Gap 9 mmol/L (5-15) Blood Urea Nitrogen 20 mg/dL (7-18) H Creatinine 1.2 MG/DL (0.55-1.30) Estimat Glomerular Filtration Rate 57.9 mL/min (>60) Glucose Level 97 MG/DL (74-106) Calcium Level 9.3 MG/DL (8.5-10.1) Iron Level 21 ug/dL (50-175) L Total Iron Binding Capacity 378 ug/dL (250-450) Percent Iron Saturation 6 % (15-50) L Unsaturated Iron Binding 357 ug/dL (112-346) H Ferritin 8 NG/ML (8-388) Carcinoembryonic Antigen Pending Vitamin B12 Level 330 PG/ML (193-986) Folate 4.3 NG/ML (8.6-58.9) L Thyroid Stimulating Hormone (TSH) 1.191 uiU/mL (0.358-3.740) Free Thyroxine 1.04 NG/DL (0.76-1.46) Objective HEENT: Atraumatic and normocephalic. Anicteric. Pupils are equal, round, and reactive to light and accommodation. Extraocular muscles are intact. NECK: JVP less than 5 cm. No carotid bruit. Carotid upstroke is 2+ bilaterally. CVS: Normal S1 and S2. Regular rate and rhythm. No murmurs, gallops, or rubs. PMI is at fourth intercostal space in the midclavicular line. LUNGS: Clear to auscultation bilaterally. ABDOMEN: Soft, nontender, and nondistended. No hepatosplenomegaly. Positive bowel sounds. EXTREMITIES: No evidence of edema, clubbing, or cyanosis. Rigoberto Blackmon MD February 03, 2019 20:02
[2019-02-03] MEDS: Atorvastatin 80mg tab ORAL SCH (20:19)
[2019-02-03] MEDS: Losartan 50mg tab ORAL SCH (20:20)
[2019-02-04] VITALS (7 sets, daily range): BP systolic 137–153; BP diastolic 67–93
--- NOTE | 2019-02-04 03:38 | NUR ---
NURSE NOTES: patient has asked about her stress test. results still not back. explained to patient that if the stress test comes back negative, patient can be discharged in the morning per dr. Mirza. patient is currently resting. vitals stable. patient sinus rhythm. will continue to monitor.
[2019-02-04 06:37] LABS: BASOPHILS % (AUTO) 0.7 % (0.0-2.0); EOSINOPHILS % (AUTO) 1.6 % (0.0-3.0); HEMATOCRIT 34.8 % (37.0-47.0); HEMOGLOBIN 10.8 G/DL (12.0-16.0); LYMPHOCYTES % (AUTO) 30.4 % (20.0-45.0); MEAN CORPUSCULAR VOLUME 68 FL (80-99); MONOCYTES % (AUTO) 6.2 % (1.0-10.0); PLATELET COUNT 363 K/UL (150-450); RED BLOOD COUNT 5.11 M/UL (4.20-5.40); WHITE BLOOD COUNT 6.9 K/UL (4.8-10.8)
[2019-02-04 06:39] LABS: ANION GAP 8 mmol/L (5-15); BLOOD UREA NITROGEN 21 mg/dL (7-18); CALCIUM 9.8 MG/DL (8.5-10.1); CARBON DIOXIDE 28 MMOL/L (21-32); CHLORIDE 104 MMOL/L (98-107); CREATININE 1.2 MG/DL (0.55-1.30); POTASSIUM 4.4 MMOL/L (3.5-5.1); SODIUM 140 MMOL/L (136-145)
--- NOTE | 2019-02-04 07:05 | NUR ---
HAND-OFF: Report given to anamaria huerta. patient stable.
--- NOTE | 2019-02-04 07:39 | NUR ---
NURSE NOTES: Patient received from AUNDREA Mosley.Pt is AAO x4. patient in no acute distress or no pain at this time. Iv is asymptomatic and patent. call light within reach. will continue to monitor. @7:[address] Duran saw patient. States discharge plan after cardiac clearance and seeing case management.
--- NOTE | 2019-02-04 07:46 | Nephrology Progress Note ---
Assessment/Plan Status: stable Assessment/Plan: A/P 1) Chest Pain with elevated Trop I - stress test today results pending. ECHO results noted - DC patient today once cleared by cardiology 2) Anemia- iron deficiency- on iron. GI reccs outpt f/u 3) HTN- on Coreg Norvasc and losartan and lipitor 4) DVT prophylaxis with SCDs DC today once cleared by GI and cardiology Subjective Date patient seen: February 04, 2019 Time patient seen: 07:43 ROS Limited/Unobtainable: No Allergies: Coded Allergies: No Known Allergies (Unverified , 02/01/19) Subjective Patient feels better. Possible DC today Objective Last 24 Hour Vital Signs Date Time Temp Pulse Resp B/P (MAP) Pulse Ox O2 Delivery O2 Flow Rate FiO2 02/04/19 04:00 60 02/04/19 04:00 98.8 63 18 149/90 (109) 94 02/04/19 00:00 97.8 69 18 144/91 (108) 98 02/04/19 00:00 72 02/03/19 21:00 Room Air 02/03/19 20:20 142/80 02/03/19 20:19 84 142/80 02/03/19 20:19 84 142/80 02/03/19 20:00 72 02/03/19 20:00 97.5 74 18 153/103 (120) 97 02/03/19 16:00 98.2 81 20 142/80 (100) 98 02/03/19 16:00 84 02/03/19 12:00 68 02/03/19 12:00 98.0 76 20 140/82 (101) 98 02/03/19 09:00 Room Air 02/03/19 08:00 98.0 76 20 144/88 (106) 98 02/03/19 08:00 74 Intake and Output 02/03/19 02/04/19 18:59 06:59 Intake Total 1800 ml Balance 1800 ml Intake Oral 1800 ml # Voids 5 3 Laboratory Tests 02/04/19 06:08: White Blood Count 6.9, Red Blood Count 5.11, Hemoglobin 10.8L, Hematocrit 34.8L , Mean Corpuscular Volume 68L, Mean Corpuscular Hemoglobin 21.2L, Mean Corpuscular Hemoglobin Concent 31.1L, Red Cell Distribution Width 20.0H, Platelet Count 363, Mean Platelet Volume 6.9, Neutrophils (%) (Auto) 61.0, Lymphocytes (%) (Auto) 30.4, Monocytes (%) (Auto) 6.2, Eosinophils (%) (Auto) 1.6, Basophils (%) (Auto) 0.7, Sodium Level 140, Potassium Level 4.4, Chloride Level 104, Carbon Dioxide Level 28, Anion Gap 8, Blood Urea Nitrogen 21H, Creatinine 1.2, Estimat Glomerular Filtration Rate 57.9, Glucose Level 95, Calcium Level 9.8 Height (Feet): 5 Height (Inches): 7.00 Weight (Pounds): 171 General Appearance: no apparent distress, alert EENT: normal ENT inspection Neck: normal alignment Cardiovascular: normal rate, regular rhythm Respiratory/Chest: lungs clear, normal breath sounds Abdomen: non tender, soft Edema: no edema noted Arm (L), no edema noted Arm (R), no edema noted Leg (L), no edema noted Leg (R), no edema noted Pedal (L), no edema noted Pedal (R), no edema noted Generalized Samy Robertson MD February 04, 2019 07:46
--- NOTE | 2019-02-04 07:48 | Discharge Instructions ---
Discharge Instructions Discharge Instructions Services at Discharge: day care Diet: 2 GM sodium (low sodium) Resume Normal Activity?: Yes Activity: light activity Follow Up Orders Follow up with primary care physician and GI in 1 week Will leave prescriptions for lipitor, norvac , coreg and losartan, ASA For Congestive Heart Failure Reminder Report to your physician any weight gain of 5 pounds or more in one week. Samy Robertson MD February 04, 2019 07:48
[2019-02-04] MEDS: Losartan 50mg tab ORAL SCH (08:42)
[2019-02-04] MEDS: Aspirin Baby 81mg ORAL SCH (08:43)
[2019-02-04] MEDS: Enoxaparin 40mg Inj SUBQ SCH (08:45)
[2019-02-04] MEDS: Carvedilol 6.25mg Tab ORAL SCH ×2 (08:52→21:15)
[2019-02-04] MEDS ORDERED: Docusate 250mg cap ORAL SCH (09:00)
--- NOTE | 2019-02-04 09:00 | NUR ---
NURSE NOTES: Spoke to Rodrigue Aguero NP. States patient is cleared by GI.
--- NOTE | 2019-02-04 09:27 | General Progress Note ---
Assessment/Plan Problem List: (1) Hypertension ICD Codes: I10 - Essential (primary) hypertension SNOMED: 44219358 Qualifiers: Qualified Codes: I10 - Essential (primary) hypertension (2) GERD (gastroesophageal reflux disease) ICD Codes: K21.9 - Gastro-esophageal reflux disease without esophagitis SNOMED: 616664395 (3) Iron (Fe) deficiency anemia ICD Codes: D50.9 - Iron deficiency anemia, unspecified SNOMED: 39230606 (4) Anemia ICD Codes: D64.9 - Anemia, unspecified SNOMED: 100075542 Qualifiers: Qualified Codes: D64.9 - Anemia, unspecified Status: stable Assessment/Plan: iron deficiency stable H&H symptomatic treatment OB stool r/o GI bleed monitor H&H, prn transfusions bowel regime H2B venofer fu labs, urine tox outpatient GI procedures Subjective ROS Limited/Unobtainable: Yes Allergies: Coded Allergies: No Known Allergies (Unverified , 02/01/19) Objective Last 24 Hour Vital Signs Date Time Temp Pulse Resp B/P (MAP) Pulse Ox O2 Delivery O2 Flow Rate FiO2 02/04/19 08:52 60 153/93 02/04/19 08:43 60 153/93 02/04/19 08:42 153/93 02/04/19 08:00 97.5 60 20 153/93 (113) 97 02/04/19 04:00 60 02/04/19 04:00 98.8 63 18 149/90 (109) 94 02/04/19 00:00 97.8 69 18 144/91 (108) 98 02/04/19 00:00 72 02/03/19 21:00 Room Air 02/03/19 20:20 142/80 02/03/19 20:19 84 142/80 02/03/19 20:19 84 142/80 02/03/19 20:00 72 02/03/19 20:00 97.5 74 18 153/103 (120) 97 02/03/19 16:00 98.2 81 20 142/80 (100) 98 02/03/19 16:00 84 02/03/19 12:00 68 02/03/19 12:00 98.0 76 20 140/82 (101) 98 Intake and Output 02/03/19 02/04/19 18:59 06:59 Intake Total 1800 ml Balance 1800 ml Intake Oral 1800 ml # Voids 5 3 Laboratory Tests 02/04/19 06:08: White Blood Count 6.9, Red Blood Count 5.11, Hemoglobin 10.8L, Hematocrit 34.8L , Mean Corpuscular Volume 68L, Mean Corpuscular Hemoglobin 21.2L, Mean Corpuscular Hemoglobin Concent 31.1L, Red Cell Distribution Width 20.0H, Platelet Count 363, Mean Platelet Volume 6.9, Neutrophils (%) (Auto) 61.0, Lymphocytes (%) (Auto) 30.4, Monocytes (%) (Auto) 6.2, Eosinophils (%) (Auto) 1.6, Basophils (%) (Auto) 0.7, Sodium Level 140, Potassium Level 4.4, Chloride Level 104, Carbon Dioxide Level 28, Anion Gap 8, Blood Urea Nitrogen 21H, Creatinine 1.2, Estimat Glomerular Filtration Rate 57.9, Glucose Level 95, Calcium Level 9.8 Height (Feet): 5 Height (Inches): 7.00 Weight (Pounds): 171 General Appearance: alert EENT: normal ENT inspection Neck: supple Cardiovascular: normal rate Respiratory/Chest: lungs clear Abdomen: normal bowel sounds, non tender, soft Extremities: non-tender Lefty Sharma MD February 04, 2019 09:27
--- NOTE | 2019-02-04 11:00 | NUR ---
NURSE NOTES: Paged Dr. Blackmon about need of cardiac clearance for discharge. In addition, made charge nurse aware of discharge planning.
--- NOTE | 2019-02-04 12:13 | Diagnostic Imaging Report ---
Indication: chest pain Technique: The study was conducted under the supervision of a supervisor shearing. lexiscan (regadenoson) infusion over 10 seconds followed by intravenous administration of 29 mCi of technetium 99m Myoview was performed. Three plane SPECT imaging of the heart was then performed. A resting study was performed as part of the one-day protocol with 10.6 mCi of technetium 99m myoview injected intravenously at that time. Three plane SPECT imaging of the heart was obtained. Comparison: None Clinical data: 1. Clinical response: Non ischemic 2. Electrocardiographic response: Non ischemic Findings: The myocardial perfusion scan demonstrates LVEF of 71%. No fixed or reversible perfusion defects are identified. IMPRESSION: Negative myocardial perfusion scan
--- NOTE | 2019-02-04 12:23 | NUR ---
NURSE NOTES: Spoke to Dr. Blackmon. States need NM image results in computer. Called NM scan. Was uploaded at 12:07. @12:20- Called Dr. Blackmon's office that results are uploaded.
--- NOTE | 2019-02-04 13:41 | NUR ---
DISCHARGE PLANNING CLINIC LIST WILL BE PROVIDED TO PATIENT SO SHE CAN FOLLOW UP AND FIND A PRIMARY CARE PHYSICIAN IF THERE ARE PRESCRIPTIONS THAT NEED TO BE FILLED THEY SHOULD BE FAXED TO [facility] SO THEY CAN BE FILLED
--- NOTE | 2019-02-04 14:30 | NUR ---
NURSE NOTES: Second call to Dr. Blackmon's office about discharge and clearance. Dr. Blackmon is aware.
--- NOTE | 2019-02-04 15:45 | NUR ---
NURSE NOTES: Spoke to Jeff from [facility]. Prescriptions were sent and will be ready by 17:30pm.
--- NOTE | 2019-02-04 16:30 | NUR ---
NURSE NOTES: Endorsed to charge nurse about cardiac clearance with Dr. Blackmon. AUNDREA Brar made contact with Dr. Blackmon and Dr. Blackmon is aware about stress test results.
--- NOTE | 2019-02-04 18:58 | NUR ---
NURSE NOTES: Continue to keep patient informed on needing cardiac clearance from Dr. Blackmon for discharge. Will be endorsed to shift mechanic.
--- NOTE | 2019-02-04 19:10 | NUR ---
NURSE NOTES: Received report from David Reyes RN. Patient is awake in bed. Sinus rhythm on phototypesetting equipment monitor. No s/s of acute distress noted. Saturating well on room air. Left AC 18g IV saline lock, intact and patent. Bed locked in lowest position with side rails up x2. Call light left within reach. Family remains at bedside. Awaiting cardiac clearance for discharge. Will continue to monitor.
--- NOTE | 2019-02-04 19:25 | NUR ---
HAND-OFF: Report given to AUNDREA Stratton. Still awaiting cardiac clearance.
--- NOTE | 2019-02-04 20:30 | NUR ---
NURSE NOTES: Left message for Dr. Blackmon in regards to patient's cardiology clearance for discharge. Awaiting response.
--- NOTE | 2019-02-04 20:35 | NUR ---
NURSE NOTES: Received cardiology clearance from Dr. Neymar MD.
[2019-02-04] MEDS: Atorvastatin 80mg tab ORAL SCH (21:15)
--- NOTE | 2019-02-04 21:30 | NUR ---
NURSE NOTES: Left AC 18g IV removed, pressure applied. Catheter intact. Site remains asymptomatic.
[2019-02-04] MEDS ORDERED: LIPITOR80 MG ORAL ×2 (21:52→22:30)
[2019-02-04] MEDS ORDERED: ASPIRIN-LOW81 MG ORAL (22:28)
[2019-02-04] MEDS ORDERED: STOOL SOFTENER100 MG PO (22:29)
[2019-02-04] MEDS ORDERED: IRON325 M1 PO (22:29)
[2019-02-04] MEDS ORDERED: LOSARTAN POTASS50 MG ORAL (22:29)
[2019-02-04] MEDS ORDERED: AMLODIPINE-ATO1 EA10 ORAL (22:30)
[2019-02-04] MEDS ORDERED: COREG6.25 MG ORAL (22:30)
--- NOTE | 2019-02-04 22:45 | NUR ---
NURSE NOTES: Patient discharged. No s/s of distress. VS are WNL. Belongings and prescriptions sent home with patient. Patient going home with family.
--- NOTE | 2019-02-05 09:31 | Discharge Summary ---
Discharge Summary Discharge Summary _ DATE OF ADMISSION: 02/01/2019 DATE OF DISCHARGE: 02/04/2019 DISCHARGED BY: Dr. Samy Robertson CONSULTANTS: Dr. Lefty Blackmon BRIEF HOSPITAL COURSE: Patient is a 48-year-old female, who presented to ED complaining of chest pain for 2 days, radiating across to her chest. She denied any shortness of breath. No nausea, no vomiting or diarrhea. The patient stated she had not been taking her medications. She had been prescribed medications in the past, but stated that she did not feel well on them and stopped taking them. She has past medical history significant for hypertension. On evaluation at the ED, blood pressure was elevated to 188/107, heart rate 83, 100% O2 saturation on room air. Blood work did not show any leukocytosis. Hemoglobin was 7.2, hematocrit 24.6. Electrolytes were normal. Troponin was elevated to 0.047. EKG showed normal sinus rhythm with no acute changes. Chest x-ray did not show any acute findings. She was given hydralazine 10 mg IV. After 2 hours, blood pressure was still elevated. Another dose was given. Packed RBCs were ordered. Patient's troponin was indeterminate. She was then admitted for hypertensive urgency, evaluation of ACS with elevated troponin and anemia. She was admitted to cardiac floor. She was placed on Lovenox for DVT prophylaxis. She was transfused 2 units packed RBC. GI was consulted for anemia. Patient denied abdominal pain, nausea, vomiting or diarrhea. Patient denied signs and symptoms of hematochezia or melena. Denied any history of endoscopic or colonoscopic examination. She was given H2 blockers. Anemia work-up showed serum iron level of 21, ferritin of 8. She was given IV iron. Vitamin B12 was 330, folate 4.3. Patient had elevated blood pressure. Public Area Attendant was consulted. Per senior strategy manager evaluation, accelerated hypertension can account for the patient's chest pain. Elevated troponin I level elevation could be due to left ventricular strain associated with left ventricular hypertrophy. Twelve-lead electrocardiogram did not show any ischemic changes. Second and third troponin levels were 0.075 and 0.072 respectively. She was given dual antihypertensive therapy including amlodipine and losartan. She was given carvedilol. Echocardiogram revealed normal left ventricular ejection fraction of 65%. Lipid panel showed total cholesterol of 120, LDL 60, H DL 53. She was continued on aspirin and atorvastatin 80 mg nightly. On 02/04/2019, she underwent Lexiscan stress test. Myocardial perfusion scan demonstrated LVEF of 71%. There was no fixed or reversible perfusion defects identified. She was counseled on nutritional education regarding salt restriction and low- salt diet as well as emphasis on increased cardiovascular activity. Hemoglobin level was stable posttransfusion. She had negative stress test. Medical treatment was optimized. She was eventually discharged home. FINAL DIAGNOSES: Hypertensive urgency Chest pain, possibly due to elevated BP Anemia requiring blood transfusion Iron deficiency anemia GERD DISPOSITION: Patient was discharged home. DISCHARGE MEDICATIONS: Refer to Discharge Medication List. DISCHARGE INSTRUCTIONS: Follow-up in a week. I have been assigned to complete a discharge summary on this account, I was not involved with the patient's management. Sharona Glez NP February 05, 2019 09:31
== END 2019-02-04 22:55 | disposition home or self-care (01) | DRG 199 ==
LOC: EDBEDREQ 19:00 → EMR 19:45 → 2E 20:06 → EDBEDREQ 20:59
PROC: 30233N1 Transfusion of Nonautologous Red Blood Cells into Peripheral Vein, Percutaneous Approach (ICD-10-PCS; principal; 2019-02-01)
DX: I16.0 Hypertensive urgency (principal); D50.9 Iron deficiency anemia, unspecified; R07.9 Chest pain, unspecified; K21.9 Gastro-esophageal reflux disease without esophagitis
CPT/HCPCS: 36415; 71045; 78452; 80048; 80053; 80061; 80307; 81025; 82378; 82550; 82553; 82607; 82728; 82746; 83540; 83550; 83880; 84439; 84443; 84484; 85007; 85025; 85044; 85610; 85730; 86850; 86900; 86901; 86920; 93005; 93017; 93306; 96374; 96376; 99285; J2785